=== PATIENT | female | born 1960 | race Caucasian/White ===

== ENCOUNTER → 2018-07-13 08:03 | Outpatient (CLI) | payer BC, SELFPAY ==
[2018-07-13 08:38] LABS: Add Manual Diff / Slide Review NO; Basophils Absolute Auto 0 /uL (0-100); Basophils Percent Auto 0.7 % (0-2); Eosinophils Absolute Auto 0 /uL (0-450); Eosinophils Percent Auto 0.9 % (2-4); Hematocrit 40.2 % (36-46); Hemoglobin 13.5 g/dL (12.0-16.0); Lymphocytes Absolute Auto 1800 /uL (1100-4500); Lymphocytes Percent Auto 35.5 % (25-40); Mean Corpuscular HGB Conc 33.5 % (30-36); Mean Corpuscular Hemoglobin 32.5 PG (26-34); Monocytes Absolute Auto 400 /uL (0-900); Monocytes Percent Auto 8.8 % (3-14); Neutrophils Absolute Auto 2700 /uL (1500-7000); Neutrophils Percent Auto 54.1 % (50-75); Platelet Count 305 X10^3/uL (150-400); Red Blood Cell Count 4.14 X10^6/uL (4.0-5.2)
[2018-07-13 08:57] LABS: Alanine Aminotransferase 18 IU/L (9-52); Albumin 4.5 g/dL (3.5-5.0); Albumin Globulin Ratio 1.3 (1.0-2.8); Alkaline Phosphatase 88 U/L (38-126); Aspartate Aminotransferase 33 IU/L (14-36); BUN Creatinine Ratio 18.8 (6-22); Bilirubin Total 0.7 mg/dL (0.2-1.3); Blood Urea Nitrogen 15 mg/dL (7-17); Calcium 9.5 mg/dL (8.4-10.2); Carbon Dioxide 29 mmol/L (22-32); Chloride 100 mmol/L (98-107); Cholesterol 268 mg/dL (140-199); Estimated Glomerular Filt Rate > 60.0 mL/min (>60); Globulin 3.5 g/dL (1.7-4.1); Glucose 100 mg/dL (70-100); HDL Cholesterol 108 mg/dL (40-60); HEMOLYSIS < 15 (0-50); LDL Cholesterol Calculated 147 mg/dL (<100); Potassium 4.3 mmol/L (3.4-5.1); Sodium 136 mmol/L (137-145); Triglycerides 64 mg/dL (35-150)
[2018-07-13 09:11] LABS: Free T3, Triiodothyronine Free 4.07 pg/mL (2.77-5.27); Free T4, Direct Thyroxine 0.84 ng/dL (0.78-2.19)
[2018-07-13 09:25] LABS: Thyroid Stimulating Hormone 2.57 uIU/mL (0.47-4.68)
[2018-07-14 16:06] LABS: Thyroid Peroxidase Antibodies 3 IU/mL (< 9)
== END ==
PROVIDERS: PCP Nurse Practitioner Obstetrics & Gynecology; Visit Provider Naturopath
DX: Z00.00 Encounter for general adult medical examination without abnormal findings (principal); E04.0 Nontoxic diffuse goiter
CPT/HCPCS: 36415; 80053; 80061; 84439; 84443; 84481; 85025; 86376

== ENCOUNTER 2018-12-31 17:21 | Emergency (ER) | payer BC, SELFPAY ==
[2018-12-31 17:30] VITALS: BP 132/73; PULSE 63; RESP 15; TEMP 36.6; O2SAT 96; BMI 25.0
--- NOTE | 2018-12-31 17:30 | DI.RAD.S_ITS ---
PROCEDURE: XR WRIST LT MIN 3V INDICATIONS: left wrist injury/deformity TECHNIQUE: 4 views of the wrist were acquired. COMPARISON: None. FINDINGS: Bones: There is a comminuted, displaced, impacted, intra-articular distal radial fracture. There is also likely a minimally displaced ulnar styloid fracture. The carpal bones are intact. Scaphoid view: The scaphoid is intact. Soft tissues: No suspicious soft tissue calcifications. IMPRESSION: Distal radial and ulnar fractures. Dictated by: Dorothy Sood M.D. on 12/31/2018 at 18:25 Approved by: Dorothy Sood M.D. on 12/31/2018 at 18:26
[2018-12-31] MEDS: ONDANSETRON 4 MG ODT SL (18:09)
--- NOTE | 2018-12-31 18:38 | ED.UPPEXIN ---
HPI - Extremity Injury (Upper) <MATEUS Barnes - Last Filed: 12/31/18 21:25> General Chief Complaint: Extremity Injury, Upper Stated Complaint: thinks she broke her right wrist Time Seen by Provider: 12/31/18 17:29 Source: patient Mode of arrival: Ambulatory Limitations: no limitations History of Present Illness HPI narrative: This is 58 year female, nonsmoker, who presents with family member with chief complain of left wrist pain with deformity. Patient reports mild numbness from 2nd through 5th fingers. Patient states she had fall on out stretched left hand about 1 hour prior coming into ED. She denies other injuries and denies pain in elbow or shoulder on affected arm. Patient right dominant hand. Patient denies previous injury to affected upper extremities. Patient reports with little movements the pain is shooting down to her fingers from wrist. Related Data Previous Rx's Medication Instructions Recorded citalopram [Celexa] 40 mg PO QAM #180 tab 02/25/16 fluticasone propionate 1 spray INTRANASAL BID #16 gm 02/26/18 hydrocodone-acetaminophen [Douglass] 1 tab PO Q6H PRN #12 tab 12/31/18 Allergies Allergy/AdvReac Type Severity Reaction Status Date / Time No Known Drug Allergies Allergy Verified 12/31/18 17:30 Review of Systems <MATEUS Barnes - Last Filed: 12/31/18 21:25> Review of Systems ROS Unobtainable: All systems reviewed & are unremarkable except as noted in HPI and below Patient History <MATEUS Barnes - Last Filed: 12/31/18 21:25> Surgical History Status post breast biopsy Family History (Updated 04/16/16 @ 00:00 by Conversion Provider) Mother Type 2 diabetes mellitus Poor eyesight Social History Smoking Status: Unknown if ever smoked Family History Mother Type 2 diabetes mellitus Poor eyesight Social History Smoking Status: Unknown if ever smoked alcohol intake frequency: 0-2 drinks per day Substance Use Type: does not use Exam <Max Chavarria [employer] - Last Filed: 12/31/18 21:25> Narrative Exam Narrative: General appearance: well developed, well nourished, in no acute distress. Head: normocephalic, atraumatic, no scalp lesions, non-tender. Eye: pupil equal, round. EOMI. Nose: nares patent. Oral: mucosa moist. Neck/Thyroid: neck supple, full range of motion, no visible masses. Skin: no suspicious rashes, lesions over visible areas. Warm and dry. Heart: no clubbing, no cyanosis, no edema. Lungs: Breathing even and unlabored. No stridor. No accessory muscles used. Chest: normal shape and expansion. Abdomen: non-obese, non-distended. Neurologic: alert and oriented. 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 Psych: good eye contact, normal affect. Initial Vital Signs Initial Vital Signs: Vital Signs Temperature 97.8 F 12/31/18 17:30 Pulse Rate 63 12/31/18 17:30 Respiratory Rate 15 12/31/18 17:30 Blood Pressure 132/73 12/31/18 17:30 Pulse Oximetry 96 12/31/18 17:30 Extrem Right upper extremity: normal to inspection and full ROM Left upper extremity: full ROM and wrist Details: abnormal to inspection, tenderness, swelling, abnormal ROM Details: held in an abnormal fashion Details: in extension, pain with active ROM, pain with passive ROM and with range as follows (finger movements), deformity, normal vascular exam, radial pulse present and ulnar pulse present; no unusual warmth, no abrasions and no lacerations <Matthew Go DO - Last Filed: 01/01/19 03:50> Initial Vital Signs Initial Vital Signs: Vital Signs Temperature 97.8 F 12/31/18 17:30 Pulse Rate 63 12/31/18 17:30 Respiratory Rate 15 12/31/18 17:30 Blood Pressure 132/73 12/31/18 17:30 Pulse Oximetry 96 12/31/18 17:30 Procedures <Max EstefanyJOE reardonP - Last Filed: 12/31/18 21:25> Orthopedic Fracture Reduction Fracture #1: Time Out Performed: Yes Side: left Fracture Reduction Location: other (wrist radius and ulnar) Analgesia: hematoma block and other (IM Dilaudid injection, Nasal Versed) Technique: direct manipulation Post Reduction X-rays Demonstrate: other (improved pain per patient' report and anatomical positioni) Post-reduction neuro exam: intact Post-reduction vascular exam: intact Splint Applied: Yes Patient Tolerated Procedure: Well Additional Comments: Hematoma block and closed reduction was conducted by Dr. Go Scores <[facility] Guzm[facility] - Last Filed: 12/31/18 21:25> GCS Judson coma scale eye opening: Spontaneous Judson coma scale verbal response: Orientated Judson coma scale motor response: Obey commands Judson coma scale total score: 15 Course <[facility] Guzm[facility] - Last Filed: 12/31/18 21:25> Orders Ordered: Discontinued Medications Hydrocodone Bitart/Acetaminophen (Vicodin Prepack) 1 bottle MISC SEEINSTR ONE Stop: 12/31/18 21:02 Last Admin: 12/31/18 21:16 Dose: 1 bottle Documented by: BTONER Hydromorphone HCl (Dilaudid) 1 mg IM NOW ONE Stop: 12/31/18 18:37 Last Admin: 12/31/18 19:18 Dose: 1 mg Documented by: BTONER Hydromorphone HCl (Dilaudid) 1 mg IM NOW ONE Stop: 12/31/18 20:33 Last Admin: 12/31/18 20:35 Dose: 1 mg Documented by: BTONER Lidocaine HCl (Xylocaine 1%) 10 ml INJ NOW ONE Stop: 12/31/18 18:37 Last Admin: 12/31/18 21:10 Dose: Not Given Documented by: BTONER Lidocaine/Sodium Bicarbonate (Buffered Lidocaine 10 Ml Syr) 10 ml INJ NOW ONE Stop: 12/31/18 19:16 Last Admin: 12/31/18 20:14 Dose: 10 ml Documented by: BTONER Midazolam HCl (Versed) 2 mg NASAL NOW ONE Stop: 12/31/18 19:58 Last Admin: 12/31/18 20:14 Dose: 2 mg Documented by: BTONER Ondansetron HCl (Zofran Odt) 4 mg SL NOW ONE Stop: 12/31/18 17:54 Last Admin: 12/31/18 18:09 Dose: 4 mg Documented by: BTONER Ondansetron HCl (Zofran Odt Prepack) 1 bottle MISC SEEINSTR ONE Stop: 12/31/18 21:02 Last Admin: 12/31/18 21:16 Dose: 1 bottle Documented by: FARTUNONEKye Vital Signs Vital signs: Vital Signs - 8 hr 12/31/18 20:36 12/31/18 20:45 12/31/18 21:00 Pulse Rate 66 75 79 Respiratory Rate 18 16 Blood Pressure Blood Pressure [Left Arm] 102/66 Blood Pressure [rt arm] 106/60 93/69 Pulse Oximetry 91 96 94 12/31/18 21:28 Pulse Rate 75 Respiratory Rate 16 Blood Pressure 104/64 Blood Pressure [Left Arm] Blood Pressure [rt arm] Pulse Oximetry 96 <Matthew Go, - Last Filed: 01/01/19 03:50> Orders Ordered: Discontinued Medications Hydrocodone Bitart/Acetaminophen (Vicodin Prepack) 1 bottle MISC SEEINSTR ONE Stop: 12/31/18 21:02 Last Admin: 12/31/18 21:16 Dose: 1 bottle Documented by: TARAR Hydromorphone HCl (Dilaudid) 1 mg IM NOW ONE Stop: 12/31/18 18:37 Last Admin: 12/31/18 19:18 Dose: 1 mg Documented by: FARTUNONER Hydromorphone HCl (Dilaudid) 1 mg IM NOW ONE Stop: 12/31/18 20:33 Last Admin: 12/31/18 20:35 Dose: 1 mg Documented by: FARTUNONER Lidocaine HCl (Xylocaine 1%) 10 ml INJ NOW ONE Stop: 12/31/18 18:37 Last Admin: 12/31/18 21:10 Dose: Not Given Documented by: BTONER Lidocaine/Sodium Bicarbonate (Buffered Lidocaine 10 Ml Syr) 10 ml INJ NOW ONE Stop: 12/31/18 19:16 Last Admin: 12/31/18 20:14 Dose: 10 ml Documented by: BTONER Midazolam HCl (Versed) 2 mg NASAL NOW ONE Stop: 12/31/18 19:58 Last Admin: 12/31/18 20:14 Dose: 2 mg Documented by: BTONER Ondansetron HCl (Zofran Odt) 4 mg SL NOW ONE Stop: 12/31/18 17:54 Last Admin: 12/31/18 18:09 Dose: 4 mg Documented by: BTONER Ondansetron HCl (Zofran Odt Prepack) 1 bottle MISC SEEINSTR ONE Stop: 12/31/18 21:02 Last Admin: 12/31/18 21:16 Dose: 1 bottle Documented by: FARTUNONER Vital Signs Vital signs: Vital Signs - 8 hr 12/31/18 20:36 12/31/18 20:45 12/31/18 21:00 Pulse Rate 66 75 79 Respiratory Rate 18 16 Blood Pressure Blood Pressure [Left Arm] 102/66 Blood Pressure [rt arm] 106/60 93/69 Pulse Oximetry 91 96 94 12/31/18 21:28 Pulse Rate 75 Respiratory Rate 16 Blood Pressure 104/64 Blood Pressure [Left Arm] Blood Pressure [rt arm] Pulse Oximetry 96 MDM - Extremity Injury (Upper) <MATEUS Barnes - Last Filed: 12/31/18 21:25> Differential Diagnosis Differential diagnosis: Likely fracture of wrist, fracture of hand and other (Fracture of the radius and ulna) Medical Records Attestation: I reviewed the patient's medical records. Imaging Data XR Wrist LT: Radiologist's impression: [place] [address] XRay Report Signed Patient: Sarah Cortez EMR#: [id number] : 1960Acct:[id number] Age/Sex: 58 / FDate of Service: 12/31/18 Loc: ED Accession Number: [id number] Procedure: XR wrist LT min 3V Ordering Provider: Max Chavarria PROCEDURE: XR WRIST LT MIN 3V INDICATIONS: left wrist injury/deformity TECHNIQUE: 4 views of the wrist were acquired. COMPARISON: None. FINDINGS: Bones: There is a comminuted, displaced, impacted, intra-articular distal radial fracture. There is also likely a minimally displaced ulnar styloid fracture. The carpal bones are intact. Scaphoid view: The scaphoid is intact. Soft tissues: No suspicious soft tissue calcifications. IMPRESSION: Distal radial and ulnar fractures. Dictated by: Dorothy Sood M.D. on 12/31/2018 at 18:25 Approved by: Dorothy Sood M.D. on 12/31/2018 at 18:26 MDM Narrative Medical decision making narrative: This is pleasant 58 year female who presents to ED with left wrist pain with deformity after accidental forward FOOSH. Patient denies any other injuries. Distal radial and ulna pulses were intact and patient was able to move her fingers but with discomfort. Patient initially reported mild numbness to 2nd through 4th fingers but when reassessed patient states sensations are pretty normal. Patient was able to move her fingers. Wrist x-ray showed of company muted, displaced, impacted distal and displaced ulna styloid fracture. Patient was medicated with Dilaudid IM injection and hematoma block prior attempt for closed reduction. Patient was not able to tolerate the procedure well. Nasal Versed was provided an additional IM Dilaudid has been provided prior to 2nd closed reduction procedure and patient tolerated the procedure well. The closed reduction procedure was conducted by Dr. Go. Sugar-tong splint and sling has been applied on affected arm. We discussed RICE therapy and return precautions and advised to follow up with [facility]. Side effects and narcotic pain medication precautions were discussed. Patient discharged to home with Prabhu and Nile. Patient agrees with treatment plan and no further questions were expressed at this time. Dr. Trinidad was contacted and consulted by Dr. Go for treatment and follow-up plans. Discharge Plan Departure Patient Disposition: Home Clinical Impression: Closed fracture distal radius and ulna Qualifiers: Encounter type: initial encounter Laterality: left Qualified Code(s): S52.502A - Unspecified fracture of the lower end of left radius, initial encounter for closed fracture Fall Qualifiers: Encounter type: initial encounter Qualified Code(s): W19.XXXA - Unspecified fall, initial encounter Discharge Date/Time: 12/31/18 21:27 Instructions: DI for Forearm Fracture Activity Restrictions/Additional Instructions: You have been diagnosed with [closed comminuted, distal radial and ulnar fracture according to the x-ray test. The fracture has been reduced and splint has been applied. Keep splint all time and try to avoid getting it wet]. What to do: *Take your medications as directed. Please take Douglass for severe pain. This is a narcotic pain medications so he may cause drowsiness and constipation. Please take precaution not to drive, drink alcohol, operate heavy equipments and keep bowel regimen to prevent constipation. For minimum to moderate pain, you can use [id number] Tylenol. You can take Tylenol up to 4000 mg in 24 hours. *Follow up with your primary care provider/orthopedist in 2-3 days, call for an appointment. Let them know you were seen in the ED and that we asked you to be seen in follow up. *Return to ED if you have any new, worsening, or concerning symptoms, such as [increasing pain, tingling numbness, decreased circulation, chest pain, breathing difficulty, unable to tolerate fluids, or any acute concerns]. Prescriptions: New hydrocodone-acetaminophen [Douglass] 5-325 mg tablet 1 tab PO Q6H PRN (Reason: pain) Qty: 12 RF: 0 No Action citalopram [Celexa] 20 MG tablet 40 mg PO QAM Qty: 180 RF: 1 fluticasone propionate 50 mcg/actuation spray,suspension 1 spray Intranasal BID Qty: 16 RF: 1 Referrals: [facility] [Provider Group] Ly Herrera ARNP [Primary Care Provider] -
[2018-12-31] MEDS: HYDROMORPHONE 1 MG INJ IM ×2 (19:18→20:35)
[2018-12-31] MEDS: MIDAZOLAM 2 MG/2 ML VIAL NASAL (20:14)
[2018-12-31] MEDS: LIDO 1%/SOD BICARB 8.4% (10ML) 10 ML SYRINGE INJ (20:14)
[2018-12-31 20:36] VITALS: BP 102/66; PULSE 66; O2SAT 91
[2018-12-31 20:45] VITALS: BP 106/60; PULSE 75; RESP 18; O2SAT 96
[2018-12-31 21:00] VITALS: BP 93/69; PULSE 79; RESP 16; O2SAT 94
--- NOTE | 2018-12-31 21:13 | PC.NURSE ---
pt c/o of pain raising, order rec'd 2039.
[2018-12-31] MEDS: ONDANSETRON 4 MG ODT PREPACK 1 BOTTLE MISC (21:16)
[2018-12-31] MEDS: HYDROCODONE/ACET 5/325 PREPACK 1 BOTTLE MISC (21:16)
--- NOTE | 2018-12-31 21:21 | PC.NURSE ---
pt placed on monitor tech with pulse ox and bp. q15min. providing VERSED intranasal per order. pt tolerating well.
--- NOTE | 2018-12-31 21:23 | PC.NURSE ---
dr. goldsmith and OMAR davis attempted to use lidocaine injection to left wrist for reduction. pt unable to tolerate, pt then rec'd versed, attempted again and pt did well, splint was place with providers. followed by sling placement to lt lower arm.
[2018-12-31 21:28] VITALS: BP 104/64; PULSE 75; RESP 16; O2SAT 96
== END 2018-12-31 21:27 | disposition home or self-care (01) ==
PROVIDERS: Emergency Provider Nurse Practitioner Family; PCP Nurse Practitioner Obstetrics & Gynecology
DX: S52.502A Unspecified fracture of the lower end of left radius, initial encounter for closed fracture (principal); W19.XXXA Unspecified fall, initial encounter
CPT/HCPCS: 25560; 29105; 29240; 73110; 96372; 99283; J1170; J2250

== ENCOUNTER → 2019-01-03 12:36 | Outpatient (CLI) | payer BC, SELFPAY ==
[2019-01-03 13:45] LABS: Add Manual Diff / Slide Review NO; Basophils Absolute Auto 0 /uL (0-100); Basophils Percent Auto 0.4 % (0-2); Eosinophils Absolute Auto 200 /uL (0-450); Eosinophils Percent Auto 2.8 % (2-4); Hematocrit 38.8 % (36-46); Hemoglobin 12.9 g/dL (12.0-16.0); Lymphocytes Absolute Auto 1400 /uL (1100-4500); Mean Corpuscular HGB Conc 33.4 % (30-36); Mean Corpuscular Volume 98.7 fL (80-100); Monocytes Absolute Auto 400 /uL (0-900); Monocytes Percent Auto 6.3 % (3-14); Neutrophils Absolute Auto 4900 /uL (1500-7000); Neutrophils Percent Auto 70.5 % (50-75); Platelet Count 252 X10^3/uL (150-400); Red Blood Cell Count 3.93 X10^6/uL (4.0-5.2); Red Cell Distribution Width 12.8 % (11.6-14.8)
== END ==
PROVIDERS: PCP Nurse Practitioner Obstetrics & Gynecology; Visit Provider Orthopaedic Surgery
DX: Z01.818 Encounter for other preprocedural examination (principal)
CPT/HCPCS: 36415; 85025

== ENCOUNTER 2019-01-04 13:48 | Day surgery (SDC) | payer BC, SELFPAY ==
[2019-01-03 14:56] VITALS: BMI 24.9
--- NOTE | 2019-01-04 | DI.RAD.S_ITS ---
PROCEDURE: XR WRIST LT 2V INDICATIONS: ORIF LEFT WRIST TECHNIQUE: 2 views of the wrist were acquired. COMPARISON: [facility], CR, XR WRIST LT MIN 3V, 12/31/2018, 17:32. FINDINGS: Intraoperative fluoroscopic radiographs demonstrate the placement of internal fixation hardware along the previous identified comminuted impacted distal radial metaphyseal intra-articular fracture, resulting in improved alignment of fracture fragments. There is adjacent soft tissue emphysema consistent with postsurgical change. Previously identified distal ulnar styloid fracture is similar alignment to prior comparison exam of 12/31/18. IMPRESSION: 1. Interval internal fixation of the left distal radial comminuted intra-articular fracture, resulting in improved alignment of fracture fragments. 2. Similar alignment of the previously identified left distal ulnar styloid fracture. Dictated by: Luke Carrington M.D. on 01/05/2019 at 9:20 Approved by: Luke Carrington M.D. on 01/05/2019 at 9:27
[2019-01-04 14:15] VITALS: BP 132/93; PULSE 85; RESP 20; TEMP 36.6; O2SAT 97; BMI 24.9
[2019-01-04] MEDS: LACTATED RINGERS 1,000 ML 100 ML IV ×2 (14:18→17:36)
--- NOTE | 2019-01-04 16:27 | PM.OP.1 ---
Operative Date/Time/Diagnoses Date of procedure: 01/04/19 Time of procedure: 18:04 Pre-op diagnosis: left intraarticular distal radius fracture Post-op diagnosis: same Procedure & Clinicians Procedure: ORIF L distal radius fracture, 3 part Same procedure as scheduled: Yes Indications: 58-year-old female with a displaced intra-articular left distal radius fracture. Was felt she would benefit from operative reduction and stabilization. Risks and benefits of surgery discussed and appropriate consent obtained. Surgeon: Luis Trinidad Click Yes if Unassisted: Yes Anesthesia Type: General Operative Notes Findings: none Closure Type: primary Specimen(s): none sent Prosthetic devices, grafts, tissues, transplants, or devices: [employer] volar plate Estimated Blood Loss (mL): 5 Procedure in detail: The patient was brought to the operating room and intubated on the table. Time-out was performed. Attention was turned towards the well-marked left wrist. Preoperative antibiotics were given. The arm was prepped and draped in the standard sterile fashion. An Esmarch was used to exsanguinate the limb and the tourniquet was inflated. A 8 cm incision was made along the FCR course curving radially distally across the wrist crease. We sharply dissected through the FCR tendon sheath and retracted the tendon and then came down to the quadratus. This was elevated off the distal radius. The fracture was exposed and cleaned up with a curette. We then reduced the fracture and confirmed under x-ray. However, every time we released the traction, the articular surface sunk back down angulating dorsally. We then took a [employer] volar plate. It was placed against the bone and x-ray was taken to confirm positioning. One screw was placed through the shaft in the variable hole. This was checked under x-ray and tightened down. We started off with our reduction and traction maneuver under x-ray and then placed 2 K-wires into the distal holes on the ulnar ulnar column. We then drilled and placed our next row screws were bicortical purchase. We then went back and removed the K-wires and placed the ulnar 2 screws. We then placed the remaining screws in the styloid screw. We then placed the remaining shaft screws. The wrist was stressed and shucked under xray to make sure it was stable. It had about 2 mm of play but had a stable firm endpoint. Final x-rays were taken. The wound was irrigated. The superficial skin were closed. The patient was placed in a well-padded volar splint. They are extubated and brought to recovery with no complications. Complications: none Post-operative Condition: stable Disposition: PACU Plan for aftercare: Outpt. Start OT after first postop visit.
--- NOTE | 2019-01-04 16:30 | SUR.PREOP ---
Block start time 1613] . Monitoring initiated and maintained throughout procedure. Oxygen and medications given per anesthesiologist instructions. Patient remained stable throughout procedure, no adverse reactions noted. Block end time 1620 [].
[2019-01-04] MEDS: CEFAZOLIN 1 GM VIAL IV (16:40)
--- NOTE | 2019-01-04 16:52 | SUR.OPER ---
Supine on padded OR bed, head on pillow, Right arm secured on padded arm boards at <90 degrees abduction, Left arm on large padded arm board controlled by surgical team, legs uncrossed, safety belt at thigh, tape over blanket over lower legs.
[2019-01-04] MEDS: BUPIVACAINE 0.5% W/ EPI (PF) VIAL 30 ML INJ (17:02)
--- NOTE | 2019-01-04 17:04 | P.PCN_ITS ---
Procedures Date/Time Date of procedure: 01/04/19 Time of procedure: 16:10 General Procedure description: Ultrasound guided spuraclavicular brachial plexus nerve block for post op pain control after left wrist ORIF surgery by Dr. Trinidad. Ri sk and benefits of procedure discussed with patient. ASA monitoring applied to patient. O2 given via nasal cannula. 2 mg Versed and 50 mcg fentanyl given for procedural sedation. Skin site was prepped with chlorhexidine and allowed to fully dry. Sterile gloves, mask, hat and probe cover were used to maintain sterility. 2% lidocaine and 30ga needle was used to make a small skin wheal at needle insertion site. Under ultrasound guidance, a 21ga 50mm Pajunk needle was directed below the clavicle near the subclavian artery and brachial plexus nerve bundles. Patient reported no parasthesias. After negative aspiration, 20 mL 0.5% ropivicaine and 10mg dexamethasone were injected around brachial plexus. Patient tolerated procedure well.
[2019-01-04 18:02] VITALS: BP 109/69; PULSE 79; RESP 13; TEMP 36.7; O2SAT 95
[2019-01-04 18:07] VITALS: BP 108/70; PULSE 79; RESP 13; TEMP 36.9; O2SAT 95
[2019-01-04 18:12] VITALS: BP 113/70; PULSE 81; RESP 11; O2SAT 94
[2019-01-04 18:20] VITALS: BP 122/76; PULSE 87; RESP 14; O2SAT 93
[2019-01-04 18:40] VITALS: BP 120/70; PULSE 84; RESP 20; O2SAT 95
== END 2019-01-04 18:45 | disposition home or self-care (01) ==
PROVIDERS: Family Provider Nurse Practitioner Obstetrics & Gynecology; PCP Nurse Practitioner Obstetrics & Gynecology; Visit Provider Orthopaedic Surgery
PROC: (CPT 25607; principal; 2019-01-04 15:45)
DX: S52.572A Other intraarticular fracture of lower end of left radius, initial encounter for closed fracture (principal); G89.18 Other acute postprocedural pain; W01.198A Fall on same level from slipping, tripping and stumbling with subsequent striking against other object, initial encounter
CPT/HCPCS: 25607; 64415; 64450; 73100; 76000; J0690; J1100; J2250; J2405; J2704; J3010

== ENCOUNTER → 2019-03-05 15:02 | Outpatient (CLI) | payer BC, SELFPAY ==
--- NOTE | 2019-03-05 | DI.MG.S_ITS ---
BILATERAL DIGITAL SCREENING MAMMOGRAM 3D/2D WITH CAD: 03/05/2019 CLINICAL: Routine screening. Family history of breast cancer. Comparison is made to exams dated: 06/03/2017 mammogram - [facility], 08/24/2015 mammogram, and 04/26/2014 mammogram - [facility]. There are scattered fibroglandular elements in both breasts. Current study was also evaluated with a Computer Aided Detection (CAD) system. There is a biopsy clip in the right breast. No significant masses, calcifications, or other findings are seen in either breast. There has been no significant interval change. IMPRESSION: NEGATIVE There is no mammographic evidence of malignancy. A 1 year screening mammogram is recommended. This exam was interpreted at Station ID: [id number]. NOTE: For mammograms, a report in lay terms will be sent to the patient. Approximately 15% of breast malignancies will not be visualized mammographically. In the management of a palpable breast mass, a negative mammogram must not discourage biopsy of a clinically suspicious lesion. Electronically Signed By: Donnell kelly/stacy:03/07/2019 09:58:18 letter sent: Normal Exam ACR BI-RADS Category 1: Negative [id number]
== END ==
PROVIDERS: Family Provider Nurse Practitioner Obstetrics & Gynecology; PCP Nurse Practitioner Obstetrics & Gynecology; Visit Provider Nurse Practitioner Obstetrics & Gynecology
DX: Z12.31 Encounter for screening mammogram for malignant neoplasm of breast (principal); Z80.3 Family history of malignant neoplasm of breast
CPT/HCPCS: 77063; 77067

== ENCOUNTER → 2019-11-10 08:06 | Outpatient (CLI) | payer BC, SELFPAY ==
[2019-11-10 08:40] LABS: Add Manual Diff / Slide Review NO; Basophils Absolute Auto 0 /uL (0-100); Basophils Percent Auto 0.7 % (0-2); Eosinophils Absolute Auto 0 /uL (0-450); Eosinophils Percent Auto 0.7 % (2-4); Hemoglobin 12.8 g/dL (12.0-16.0); Lymphocytes Absolute Auto 1900 /uL (1100-4500); Lymphocytes Percent Auto 41.9 % (25-40); Mean Corpuscular HGB Conc 34.8 % (30-36); Mean Corpuscular Hemoglobin 33.1 PG (26-34); Mean Corpuscular Volume 95.4 fL (80-100); Monocytes Absolute Auto 400 /uL (0-900); Monocytes Percent Auto 8.9 % (3-14); Neutrophils Absolute Auto 2200 /uL (1500-7000); Neutrophils Percent Auto 47.8 % (50-75); Platelet Count 253 X10^3/uL (150-400); Red Blood Cell Count 3.87 X10^6/uL (4.0-5.2); Red Cell Distribution Width 13.1 % (11.6-14.8); White Blood Cell Count 4.6 X10^3/uL (4.5-11.0)
[2019-11-10 08:56] LABS: Alanine Aminotransferase 15 IU/L (<35); Albumin 4.2 g/dL (3.5-5.0); Albumin Globulin Ratio 1.4 (1.0-2.8); Alkaline Phosphatase 82 U/L (38-126); Aspartate Aminotransferase 32 IU/L (14-36); BUN Creatinine Ratio 28.9 (6-22); Bilirubin Total 0.8 mg/dL (0.2-1.3); Blood Urea Nitrogen 24 mg/dL (7-17); Calcium 9.2 mg/dL (8.4-10.2); Carbon Dioxide 29 mmol/L (22-32); Chloride 103 mmol/L (98-107); Cholesterol 249 mg/dL (140-199); Estimated Glomerular Filt Rate > 60.0 mL/min (>60); Globulin 2.9 g/dL (1.7-4.1); Glucose 98 mg/dL (70-100); HEMOLYSIS < 15 (0-50); Potassium 4.2 mmol/L (3.4-5.1); Sodium 136 mmol/L (137-145); Total Protein 7.1 g/dL (6.3-8.2); Triglycerides 58 mg/dL (35-150)
[2019-11-10 09:09] LABS: HDL Cholesterol 123 mg/dL (40-60); LDL Cholesterol Calculated 114 mg/dL (<100)
[2019-11-10 09:33] LABS: Thyroid Stimulating Hormone 3.01 uIU/mL (0.47-4.68)
== END ==
PROVIDERS: Family Provider Nurse Practitioner Obstetrics & Gynecology; PCP Nurse Practitioner Obstetrics & Gynecology; Referring Provider Naturopath; Visit Provider Naturopath
DX: Z00.00 Encounter for general adult medical examination without abnormal findings (principal)
CPT/HCPCS: 36415; 80053; 80061; 84443; 85025

== ENCOUNTER → 2021-05-29 16:47 | Outpatient (CLI) | payer BC, SELFPAY ==
--- NOTE | 2021-05-29 | DI.MG.S_ITS ---
BILATERAL DIGITAL SCREENING MAMMOGRAM 3D/2D WITH CAD: 05/29/2021 CLINICAL: Routine screening. Family history of breast cancer. Comparison is made to exams dated: 03/05/2019 mammogram, 06/23/2017 mammogram, 06/03/2017 mammogram - [facility], 08/24/2015 mammogram, and 06/30/2017 stereotactic biopsy - [facility]. There are scattered fibroglandular elements in both breasts. Current study was also evaluated with a Computer Aided Detection (CAD) system. There is a biopsy clip in the right breast. No significant masses, calcifications, or other findings are seen in either breast. There has been no significant interval change. IMPRESSION: NEGATIVE There is no mammographic evidence of malignancy. A 1 year screening mammogram is recommended. This exam was interpreted at Station ID: [id number]. NOTE: For mammograms, a report in lay terms will be sent to the patient. Approximately 15% of breast malignancies will not be visualized mammographically. In the management of a palpable breast mass, a negative mammogram must not discourage biopsy of a clinically suspicious lesion. Electronically Signed By: Rivas martin/stacy:05/30/2021 08:48:22 letter sent: Normal Exam ACR BI-RADS Category 1: Negative [id number]
== END ==
PROVIDERS: Family Provider Nurse Practitioner Obstetrics & Gynecology; PCP Nurse Practitioner Obstetrics & Gynecology; Referring Provider Registered Nurse; Visit Provider Registered Nurse
DX: Z12.31 Encounter for screening mammogram for malignant neoplasm of breast (principal)
CPT/HCPCS: 77063; 77067

== ENCOUNTER → 2022-09-26 15:05 | Outpatient (CLI) | payer BC, SELFPAY ==
--- NOTE | 2022-09-26 | DI.MG.S_ITS ---
BILATERAL DIGITAL SCREENING MAMMOGRAM 3D/2D WITH CAD: 09/26/2022 CLINICAL: Routine screening. Family history of breast cancer. Comparison is made to exams dated: 05/29/2021 mammogram, 03/05/2019 mammogram - [facility], and 06/30/2017 specimen - [facility]. Both breasts are heterogeneously dense, which may obscure small masses (category c / 51-75% glandular tissue). Current study was also evaluated with a Computer Aided Detection (CAD) system. There is a biopsy clip in the right breast. No significant masses, calcifications, or other findings are seen in either breast. There has been no significant interval change. IMPRESSION: BENIGN There is no mammographic evidence of malignancy. A 1 year screening mammogram is recommended. Please consider supplemental MRI screening. Based on Tyrer-Cuzick model (a risk assessment model), the patient's lifetime risk is 34.8% and her 10 year risk is 15.3%. If a patient has an elevated risk, a more comprehensive evaluation should be considered and/or a referral to a genetic counselor. The [place] [employer], [place] [employer], and NCCN Guidelines advise the consideration of Breast MRI as an adjunct to screening mammography in patients whose Lifetime risk to develop breast cancer is 20% or higher. This exam was interpreted at Station ID: [id number]. NOTE: For mammograms, a report in lay terms will be sent to the patient. Approximately 15% of breast malignancies will not be visualized mammographically. In the management of a palpable breast mass, a negative mammogram must not discourage biopsy of a clinically suspicious lesion. Electronically Signed By: Stefano Ruiz M.D. lc/:09/26/2022 16:38:18 letter sent: Normal Exam ACR BI-RADS Category 2: Benign Finding(s) 3342F
== END ==
PROVIDERS: Family Provider Nurse Practitioner Obstetrics & Gynecology; PCP Registered Nurse; Referring Provider Registered Nurse; Visit Provider Registered Nurse
DX: Z12.31 Encounter for screening mammogram for malignant neoplasm of breast (principal); Z80.3 Family history of malignant neoplasm of breast
CPT/HCPCS: 77063; 77067

== ENCOUNTER → 2024-01-19 17:50 | Outpatient (CLI) | payer BC, SELFPAY ==
--- NOTE | 2024-01-19 17:50 | DI.MG.S_ITS ---
BILATERAL DIGITAL SCREENING MAMMOGRAM 3D/2D WITH CAD: 01/19/2024 CLINICAL: Routine screening. Family history of breast cancer. Comparison is made to exams dated: 09/26/2022 mammogram, 05/29/2021 mammogram, 03/05/2019 mammogram, 06/23/2017 mammogram, 06/03/2017 mammogram - [facility], and 08/24/2015 mammogram - [facility]. The breasts are heterogeneously dense, which may obscure small masses (category c / 51-75% glandular tissue). Current study was also evaluated with a Computer Aided Detection (CAD) system. There is a biopsy clip in the right breast. No significant masses, calcifications, or other findings are seen in either breast. There has been no significant interval change. IMPRESSION: BENIGN There is no mammographic evidence of malignancy. A 1 year screening mammogram is recommended. Based on Tyrer-Cuzick model (a risk assessment model), the patient's lifetime risk is 34.1% and her 10 year risk is 15.5%. If a patient has an elevated risk, a more comprehensive evaluation should be considered and/or a referral to a genetic counselor. The [place] [employer], [employer] [employer], and NCCN Guidelines advise the consideration of Breast MRI as an adjunct to screening mammography in patients whose Lifetime risk to develop breast cancer is 20% or higher. This exam was interpreted at Station ID: [id number]. NOTE: For mammograms, a report in lay terms will be sent to the patient. Approximately 15% of breast malignancies will not be visualized mammographically. In the management of a palpable breast mass, a negative mammogram must not discourage biopsy of a clinically suspicious lesion. Electronically Signed By: Linda Shetty M.D., Ph.D. [email or web address]:01/20/2024 14:19:15 letter sent: Normal Exam ACR BI-RADS Category 2: Benign
== END ==
PROVIDERS: Family Provider Nurse Practitioner Obstetrics & Gynecology; PCP Registered Nurse; Referring Provider Registered Nurse; Visit Provider Registered Nurse
DX: Z12.31 Encounter for screening mammogram for malignant neoplasm of breast (principal); Z80.3 Family history of malignant neoplasm of breast; R92.333 Mammographic heterogeneous density, bilateral breasts
CPT/HCPCS: 77063; 77067